=== PATIENT | female | born 1970 | race Caucasian/White ===

== ENCOUNTER 2022-10-24 22:47 | Emergency (ER) | payer BC, SELFPAY ==
[2022-10-24 22:55] VITALS: BP 155/85; PULSE 71; RESP 18; TEMP 36.6; O2SAT 98; BMI 32.5
--- NOTE | 2022-10-24 22:56 | W.ED.GENADLT ---
HPI - General Adult General: Chief complaint: Eye Problems Stated complaint: right eye swelling Time Seen by Provider: 10/24/22 22:49 History of Present Illness: 51-year-old female comes in tonight due to bilateral eyes swelling. Patient was diagnosed with a infected hair follicle to the central brow and was given a dose of ceftriaxone and started on Bactrim yesterday. Patient awakened this evening to note more swelling around both of the eyes. Patient reports no significant pain or discomfort. Patient does have a noticeable open lesion draining some clear fluid with a white central pustule. Associated symptoms: Deny dyspnea Review of Systems General: Reports: 10 or more systems reviewed and unremarkable except in HPI and below Resp: Denies: dyspnea Skin/Breast: Reports: erythema Physical Exam Const: COMMON NORMALS: alert HENMT: FACE & SINUS: erythema and edema FACE & SINUS IMAGES: 1. Pustule with surrounding redness and swelling Neck/C-Spine: COMMON NORMALS: full ROM Resp: COMMON NORMALS: normal respiratory effort and clear to auscultation bilaterally AUSCULTATION: clear to auscultation bilaterally Cardio: COMMON NORMALS: regular rate and regular rhythm RATE: regular rate RHYTHM: regular rhythm Back/Pelvis: COMMON NORMALS: thoracic and lumbar spine normal to inspection Extremity: COMMON NORMALS: full ROM Neuro: SENSORIUM/ORIENTATION: Yes alert Skin: LESIONS: lesion noted (Central forehead/brow) Procedures Abscess I/D Site: face Technique: other (Wound was irrigated with saline and cleaned out with cotton) Irrigation: Yes Course Vital Signs: Vital signs: Vital Signs Temperature 97.8 F 10/24/22 22:55 Pulse Rate 60 10/24/22 23:37 Respiratory Rate 18 10/24/22 23:37 Blood Pressure 136/82 10/24/22 23:37 Pulse Oximetry 96 10/24/22 23:37 Oxygen Delivery Me thod Room Air 10/24/22 22:55 [facility] - General Adult Medical Decision Making Patient has a centralized pustule to the middle forehead with surrounding erythema. Differential diagnosis includes abscess, folliculitis, furuncle, carbuncle, inflammatory carcinoma. Pustule was cleaned with cotton swab and irrigated with saline. Antibiotic ointment mupirocin was then applied. Patient was given another dose of cefazolin IM, she will continue with the Bactrim as prescribed. Patient was given 1 dose of dexamethasone to help with the facial swelling. Patient knows to continue with mupirocin ointment and medications as prescribed and recommended follow-up or return to the ER for worsening symptoms. Discharge Plan Discharge Patient Disposition: Home Clinical Impression: Abscess of face Condition: Stable Discharge Orders: Discharge ED (Routine); Ordered 10/24/22 Ordered By: Kamron Villalobos Discharge Diet: Usual diet Discharge Activity: Increase activity as tolerated Patient Instructions: Abscess (ED) Activity Restrictions/Additional Instructions: Clean wound twice a day with mild soap and water. Apply mupirocin antibiotic ointment twice a day to the wound. Continue Bactrim DS 1 tablet twice a day as directed. Elevate your head at night in order to control swelling. Follow-up with primary care as needed. Return to ED for worsening symptoms such as high fever, inability to hold fluids down, or new concerns. Stand Alone Forms: Work/School Release Coding Level of Care Code ED Neonatal Doctor for Shanti Levine
[2022-10-24] MEDS: dexamethasone 10 mg/mL INJ IM (23:18)
[2022-10-24] MEDS: ceFAZolin 1,000 MG in water for injection-sterile 2.5 ML 1 MG IM (23:19)
[2022-10-24] MEDS: mupirocin oint 22 gm 1 APPLIC TOPICAL (23:19)
[2022-10-24 23:37] VITALS: BP 136/82; PULSE 60; RESP 18; O2SAT 96
== END 2022-10-24 23:44 | disposition home or self-care (01) ==
PROVIDERS: Emergency Provider Nurse Practitioner Family
DX: L02.01 Cutaneous abscess of face (principal)
CPT/HCPCS: 96372; 99284; J0690; J1100